=== PATIENT | male | born 1975 | race Caucasian/White ===

== ENCOUNTER 2022-10-05 16:39 | Emergency (ER) | payer BC, SELFPAY ==
[2022-10-05 16:50] VITALS: BP 154/80; PULSE 89; RESP 16; TEMP 37.3; O2SAT 98
--- NOTE | 2022-10-05 17:03 | ED.GENADULT ---
HPI - General Adult General Chief complaint: Ear Stated complaint: lt ear pain Source: patient Mode of arrival: ambulatory Limitations: no limitations History of Present Illness HPI narrative: Patient presents for evaluation of left-sided ear pain. Symptom onset Thursday of last week. Pain has been constant however severity of pain has been variable. He reports some sinus congestion, postnasal drainage, occasional mild cough and some throat irritation. No fever, chills, nausea, vomiting or diarrhea. His daughter is currently on amoxicillin for some of type of respiratory infection. He states he has a hx of recurrent ear infections. He does fly frequently and notices that changes in altitude have contributed to similar symptoms in the past. He has tried flonase, sudafed and oral allergy medication without success reduction in his symptoms. Related Data Allergies Allergy/AdvReac Type Severity Reaction Status Date / Time azithromycin Allergy Unknown ? Verified 10/05/22 16:48 Review of Systems Review of Systems: CONSTITUTIONAL: Denies fever, chills, or sweats. EYES: Denies visual changes, redness, or discharge. ENT: Reports left sided ear pain, sinus congestion, postnasal drainage, and a mild sore throat CARDIOVASCULAR: Denies chest pain, palpitations, or edema. RESPIRATORY: Reports cough. Denies SOB GASTROINTESTINAL: Denies abdominal pain, nausea, vomiting, or diarrhea. GENITOURINARY: Denies dysuria or hematuria. SKIN: Denies rash or itching. MUSCULOSKELETAL: Denies back pain, joint pain, or myalgia. NEUROLOGIC: Denies headache, numbness, dizziness, or weakness. PSYCHIATRIC: Denies anxiety or depression. [facility] Past Medical History Medical History History of recurrent ear infection Surgical History Surgical History No pertinent past surgical history Family History Family History Mother Family history non-contributory Social History Social History Smoking status: Never smoker Substance use: never Gender identity (if verbalized by the patient): Male Spiritual care concerns: No Exam Narrative: GENERAL: Well-appearing, well-nourished, and in no acute distress. HEAD: Normocephalic, atraumatic. EYES: PERRLA and EOMI. ENT: Nares clear, no rhinorrhea or epistaxis. Mucous membranes moist. Oropharynx without tonsillar hypertrophy exudate or other lesions. Left TM erythema with some middle ear fluid present NECK: Supple. No adenopathy or masses. No carotid bruits or JVD CHEST: Clear to auscultation. No respiratory distress. No wheezes rales or rhonchi HEART: Regular rate and rhythm. No murmur heard. Normal peripheral pulses. ABDOMEN: Soft, nontender, nondistended, normal active bowel sounds. EXTREMITIES: Normal range of motion. No edema. SKIN: Warm, dry, no rash. NEURO: No focal deficits. Alert and oriented x3. PSYCH: Normal mood and affect. Course Course Emergency Course: this is a 47-year-old male who presented for evaluation of left-sided ear pain. On exam he has left TM erythema and middle ear fluid present. Exam is consistent with eustachian tube dysfunction. Sudafed, flonase and oral allergy medications have been ineffective. Flying seems to exacerbate his symptoms. I think it is reasonable to provide script for augmentin. Continue other therapies as before. Follow up this coming week with primary care and go to ER for worsening symptoms. Pt in agreement with plan of care. Level of Care: Express Care Visit Vital Signs Vital signs: Vital Signs Temperature 37.3 C 10/05/22 16:50 Pulse Rate 89 10/05/22 16:50 Respiratory Rate 16 10/05/22 16:50 Blood Pressure 154/80 H 10/05/22 16:50 Pulse Oximetry 98 10/05/22 16:50 Temperature 37.3
== END 2022-10-05 17:08 | disposition home or self-care (01) ==
PROVIDERS: Emergency Provider Nurse Practitioner
DX: H92.02 Otalgia, left ear (principal)
CPT/HCPCS: 99203; G0463

== ENCOUNTER 2025-05-13 08:04 | Emergency (ER) | payer BC, SELFPAY ==
[2025-05-13] VITALS (27 sets, daily range): BP systolic 115–139; BP diastolic 71–102; PULSE 68–90; RESP 7–22; TEMP 36.3; O2SAT 94–99
--- NOTE | ~2025-05-13 | CT_ITS ---
EXAMINATION: CT brain wo con DATE: 05/13/2025 08:29 INDICATION: Syncopal episode with left frontal head injury TECHNIQUE: Computed tomography (CT) of the head was performed without intravenous contrast. Sagittal and coronal reconstructions were performed. The mA was adjusted according to patient size. Iterative reconstruction technique was employed. The dose-length product was 605.33 mGy-cm. COMPARISON: None FINDINGS: No fracture. No acute intracranial hemorrhage, acute infarction or abnormal extra axial fluid collect ion. Ventricles are normal and symmetric. No mass/mass effect. The orbits, paranasal sinuses and mast oid air cells are normal. IMPRESSION: 1. Normal head CT. Reviewed, dictated and finalized at location A. IMPRESSION: 1. Normal head CT.
--- NOTE | ~2025-05-13 | XR_ITS ---
EXAMINATION: XR chest 2V DATE: 05/13/2025 08:37 INDICATION: Syncope TECHNIQUE: PA and lateral views of the chest were obtained. COMPARISON: None FINDINGS: The lungs are clear with no focal airspace opacities, pulmonary edema, pleural effusion or pneumothor ax. The cardiomediastinal silhouette is normal. Visualized bones and soft tissues are unremarkable. IMPRESSION: 1. No acute cardiopulmonary disease. Reviewed, dictated and finalized at location A.
--- NOTE | 2025-05-13 08:21 | ED.SYNCOPE ---
HPI - Syncope General Chief Complaint: Syncope Stated Complaint: syncope Time Seen by Provider: 05/13/25 08:08 History of Present Illness HPI narrative: Patient is a 49-year-old male who presents ER after having syncope x2 at the gym. Reports he had been doing some biceps and back lips when began to feel lightheaded and off. He tried rest to light thought he was at a good position and was going to walk out to his cards that an air conditioner. He was walking down the steps and was having trouble placing his feet and he got to the door to leave he lost consciousness and struck his head. He then sat at a table and is unsure if he stood up again or if he passed out just from sitting. EMS arrived. Normal Accu-Chek. He was clammy and slightly hypotensive. Patient denies having any chest pain. No arrhythmia/palpitation. Has not had similar symptoms prior. Did not eat this morning. He had a normal evening yesterday. No excess alcohol. Establishing care with new PCP at the end of the month but has no significant previous diagnoses or family history. Related Data Allergies Allergy/AdvReac Type Severity Reaction Status Date / Time azithromycin Allergy Unknown ? Verified 05/13/25 08:15 Review of Systems Review of Systems: All systems reviewed & are unremarkable except as noted in HPI and below Constitutional: Constitutional: Reports no additional constitutional complaints Cardiovascular: Cardiovascular: Reports no additional cardiovascular complaints Respiratory: Respiratory: Reports no additional respiratory complaints Gastrointestinal: Gastrointestinal: Reports no additional gastrointestinal complaints Musculoskeletal: Musculoskeletal: Reports no additional musculoskeletal complaints PMFSH Past Medical History Medical History (Updated 05/13/25 @ 11:34 by Loi Jacome MD) History of recurrent ear infection Surgical History Surgical History No pertinent past surgical history Family History Family History Mother Family history non-contributory Social History Social History Smoking status: Never smoker Substance use: never Gender identity (if verbalized by the patient): Male Spiritual care concerns: No Exam Narrative: GENERAL: Well-appearing, well-nourished, and in no acute distress. HEAD: Normocephalic, left forehead abrasion just above the eyebrow. ENT: Mucous membranes moist. CHEST: Clear to auscultation. No respiratory distress. HEART: Regular rate and rhythm. Normal peripheral pulses. ABDOMEN: Soft, nontender, nondistended. EXTREMITIES: Normal range of motion. No edema. SKIN: Warm, dry, no rash. NEURO: Alert and oriented x3. PSYCH: Normal mood and affect. Course Course Emergency Course: Patient resting comfortably. Informed of results. Patient has had 2 normal EKGs and 2- troponins. His creatinine is slightly bumped with an elevated BUN. He has been hydrated with IV fluid. Recommend follow-up with his PCP possible outpatient stress test. Discussed return precautions. Patient might feel comfortable with the plan. Vital Signs Vital signs: Vital Signs Temperature 97.4 F L 05/13/25 08:00 Pulse Rate 86 05/13/25 08:00 Respiratory Rate 16 05/13/25 08:00 Blood Pressure 115/74 05/13/25 08:00 Pulse Oximetry 98 05/13/25 08:00 Temperature 97.4 F L 05/13/25 08:00 Pulse Rate 72 05/13/25 10:45 Respiratory Rate 15 05/13/25 10:45 Blood Pressure 124/80 05/13/25 10:01 Pulse Oximetry 98 05/13/25 10:45 MDM - Syncope Lab Data 05/13/25 08:20 05/13/25 08:20 Labs: Lab Results 05/13/25 05/13/25 Range/Units 08:20 10:32 WBC 6.8 (4.5-10.0) K/mm3 RBC 5.46 (4.6-6.20) M/mm3 Hgb 15.0 (14.0-18.0) g/dL Hct 46.0 (42.0-52.0) % MCV 84.2 (80-100) fl MCH 27.5 (26-34) pg MCHC 32.6 (32-36) g/dl RDW 13.2 (11.5-14.5) % Plt Count 284 (150-375) k/mm3 MPV 8.7 (7.4-10.4) fl Immature Gran % (Auto) 0.1 (0-0.5) % Neut % (Auto) 58.6 (45.5-73.1) % Lymph % (Auto) 33.2 (18.3-44.2) % Reeves % (Auto) 5.6 (2.6-8.5) % Eos % (Auto) 2.1 (0-4.4) % Baso % (Auto) 0.4 (0.2-1.2) % Lymph # (Auto) 2.24 (0.9-3.2) K/mm3 Reeves # (Auto) 0.4 (0.1-0.6) K/mm3 Eos # (Auto) 0.1 (0-0.3) K/mm3 Baso # (Auto) 0.0 (0.0-0.1) K/mm3 Abs Immat Gran (auto) 0.01 (0.00-0.031) K/mm3 Absolute Neuts (auto) 4.0 (1.3-6.7) K/mm3 Absolute Nucleated RBC 0.000 (0.0-0.012) K/mm3 Nucleated RBC % 0.0 (0.0-0.2) % PT 13.8 (11.1-14.7) Seconds INR 1.1 APTT 26.6 (22.3-36.8) Seconds Sodium 139 (137-145) mmol/L Potassium 4.8 (3.4-5.0) mmol/L Chloride 106 (98-107) mmol/L Carbon Dioxide 23 (22-30) mmol/L Anion Gap 10 (4-12) mmol/L BUN 21 H (9-20) mg/dL Creatinine 1.32 H (0.7-1.3) mg/dL Estim Creat Clear Calc 71 ml/min Estimated GFR 58 L (59 - ) Glucose 130 H (65-110) mg/dL Calcium 8.9 (8.4-10.2) mg/dL Total Bilirubin 0.6 (0.2-1.3) mg/dL AST 26 (17-59) U/L ALT 31 (6-50) U/L Alkaline Phosphatase 49 (38-126) U/L Troponin I < 0.012 < 0.012 (0.000-0.034) ng/mL NT-Pro-B Natriuret Pep < 20 (19.9-100) pg/mL Total Protein 7.1 (6.3-8.2) g/dL Albumin 4.2 (3.5-5.1) g/dL Imaging Data Radiologist's impression: ITS Impressions Head CT 05/13/25 08:33 IMPRESSION: 1. Normal head CT. Chest X-Ray 05/13/25 08:43 IMPRESSION: 1. No acute cardiopulmonary disease. ECG Data EKG #1: ECG completion date: 05/13/25 ECG completion time: 08:07 EKG Interpretation: normal rate (80), sinus rhythm, normal QRS, normal QT and NL axis Discharge Plan Discharge Clinical Impression: Syncope Patient Disposition: Home Condition: Stable Instructions: Syncope (ED) Additional Instructions: Please return to the emergency department if you develop severe and persistent chest pain, difficulty breathing, dizziness, leg swelling or if you are coughing up blood as these can be signs of a medical emergency. Please call your doctor for a follow up appointment to determine the need for further testing. Patient Language: [place] Citizen Prescriptions: No Action amoxicillin-pot clavulanate 875-125 mg tablet 1 tablet PO Q12H Qty: 20 0RF Follow-up/Referrals: Esau Carlos [Other] - 1 Week UNKNOWN,DOCTOR [Non-Staff] -
[2025-05-13 08:26] LABS: Hematocrit 46.0 % (42.0-52.0); Hemoglobin 15.0 g/dL (14.0-18.0); Immature Granulocyte Percent A 0.1 % (0-0.5); Lymphocytes Absolute Auto 2.24 K/mm3 (0.9-3.2); Mean Corpuscular HGB Conc 32.6 g/dl (32-36); Mean Corpuscular Hemoglobin 27.5 pg (26-34); Mean Corpuscular Volume 84.2 fl (80-100); Nucleated Red Blood Cells Absolute Auto 0.000 K/mm3 (0.0-0.012); Nucleated Red Blood Cells Perc 0.0 % (0.0-0.2); Platelet Count Result 284 k/mm3 (150-375); Red Blood Count 5.46 M/mm3 (4.6-6.20); White Blood Count 6.8 K/mm3 (4.5-10.0)
--- OUTSIDE RECORDS SUMMARY | 2025-05-13 08:29 | XMS_ITS | Clinical Summary ---
Author Organization [facility] Address [address] [place] [address] Phone Care Team Providers Care Rn Rehab Name Role Phone Pino Pitts MD Primary Care Provider [phone] Allergies Active Allergy Reactions Criticality Noted Date Comments Azithromycin Unknown 03/21/2010 Medications loratadine 10 MG PO TABS Take 10 mg by mouth daily. Active fluticasone (FLONASE) 50 MCG/ACT Suspension 1-2 Sprays by Nasal route daily. Use in each nostril as directed. 1 Bottle 1 07/26/2015 Active Active Problems No known active problems Immunizations Immunization Administration Dates Next Due Influenza Vaccine greater than 3 yrs 08/02/2015, 09/02/2014,08/02/2013 Family History Medical History Relation Name Comments Diabetes Father Relation Name Status Comments Father Social History Tobacco Use Types Packs/Day Years Used Date Smoking Tobacco: Never Smokeless Tobacco: Never Comments:social smoker in [facility]. Alcohol Use Standard Drinks/Week Comments No 0 (1 standard drink = 0.6 oz pur e alcohol) Sexually Active Control Partners Comments Yes Female Sex and Gender Information Value Date Recorded Sex Assigned at Not on file Legal Sex Male 3:47 AM [employer] Gender Identity Not on file Sexual Orientation Not on file Occupation Industry Job Start Date Job End Date Not on file Not on file Not on file Not on file Last Filed Vital Signs Vital Sign Reading Time Taken Comments Blood Pressure 114/70 12/17/2015 3:10 PM [employer] Pulse 88 12/17/2015 3:10 PM [employer] Temperature 36.9 C (98.4 F) 11/15/2014 2:47 PM [employer] Respiratory Rate 16 10/12/2015 10:57 AM [employer] Oxygen Saturation 97% 07/24/2014 10:54 AM CDT Inhaled Oxygen Concentration - - Weight 89.4 kg (197 lb) 12/17/2015 3:10 PM [employer] Height 172.7 cm (5' 8) 12/17/2015 3:10 PM [employer] Body Mass Index 29.95 12/17/2015 3:10 PM [employer] Plan of Treatment Health Maintenance Due Date Last Done Comments Hepatitis C Virus (HCV) Screening 1977 TdaP Immunization 1977 Hepatitis B Immunization (1 of 3 - 19+ 3-dose series) 1996 Colonoscopy 2022 Colorectal Cancer Screening 2022 Influenza Immunization (#1) 07/03/20240 11/2014, 09/02/2014, 08/02/2013 SARS-COV-2 Immunization ( season) 2024 Respiratory Syncytial Virus (RSV) Immunization (Adult) (1 - 1-dose 75+ series) 2052 Meningococcal Immunization (ACWY) Aged Out No longer eligible b ased on patient's age to complete this topic Pneumococcal Immunization Combined Aged Out No longer eligible b ased on patient's age to complete this topic Rotavirus Immunization Aged Out No lo nger eligible based on patient's age to complete this topic Insurance Advance Directives * No Code Status (Latest Code Status on File) Date Activated Date Inactivated Comments 03/21/2010 2:09 PM not at this ti me. Care Teams Rn Rehab Relationship Specialty Start Date End Date Pino Pitts MD [address] [place] [address] PCP - General Internal Medicine/Pediatrics 07/26/14
--- NOTE | 2025-05-13 08:32 | ECG_ITS ---
Test Date: 2025-05-13 08:07:59 Measurements Intervals [place] Rate: 80 P: 24 MN: 192 QRS: 76 QRSD: 88 T: 58 QT: 358 QTc: 415 Interpretive Statements SINUS RHYTHM NORMAL ECG No previous ECG available for comparison Electronically Signed On 05-13-2025 09:55:24 CDT by Giles Edgar M.D.
[2025-05-13 08:37] LABS: Alanine Aminotransferase 31 U/L (6-50); Albumin Level 4.2 g/dL (3.5-5.1); Alkaline Phosphatase 49 U/L (38-126); Anion Gap 10 mmol/L (4-12); Aspartate Amino Transferase 26 U/L (17-59); Bilirubin,Total 0.6 mg/dL (0.2-1.3); Blood Urea Nitrogen 21 mg/dL (9-20); Calcium 8.9 mg/dL (8.4-10.2); Carbon Dioxide 23 mmol/L (22-30); Chloride 106 mmol/L (98-107); Estimated CRCL calculation 71 ml/min; Estimated Glomerular Filt Rate 58; Glucose 130 mg/dL (65-110); Potassium 4.8 mmol/L (3.4-5.0); Sodium 139 mmol/L (137-145); Total Protein 7.1 g/dL (6.3-8.2)
[2025-05-13 08:49] LABS: NT Pro B Type Natriuretic Pept < 20 pg/mL (19.9-100); Troponin I < 0.012 ng/mL (0.000-0.034)
[2025-05-13 08:50] LABS: INR 1.1; Partial Thromboplastin Time 26.6 Seconds (22.3-36.8); Prothrombin Time 13.8 Seconds (11.1-14.7)
[2025-05-13] MEDS: SODIUM CHLORIDE 0.9% IV 1,000 ML 999 ML IV CONT (09:09)
--- NOTE | 2025-05-13 10:36 | ECG_ITS ---
Test Date: 2025-05-13 10:46:26 Measurements Intervals [place] Rate: 72 P: 32 VT: 204 QRS: 56 QRSD: 86 T: 61 QT: 353 QTc: 387 Interpretive Statements SINUS RHYTHM NORMAL ECG Compared to ECG 05/13/2025 08:07:59 No significant changes Electronically Signed On 05-13-2025 12:46:47 CDT by Giles Edgar M.D.
[2025-05-13 11:14] LABS: Troponin I < 0.012 ng/mL (0.000-0.034)
== END 2025-05-13 11:59 | disposition home or self-care (01) ==
PROVIDERS: Emergency Provider Emergency Medicine
DX: R55 Syncope and collapse (principal)
CPT/HCPCS: 36415; 70450; 71046; 80053; 83880; 84484; 85025; 85610; 85730; 93005; 96360; 99284; J7030